=== PATIENT | female | born 1960 | race Native Hawaiian/Other Pacific Islander ===

== ENCOUNTER 2023-04-20 06:56 | Outpatient (CLI) | payer OTHER | END 2023-04-20 23:59 | disposition critical access hospital (66) | LOC: EMS 06:56 | DX: R41.0 Disorientation, unspecified (principal); R29.810 Facial weakness; R53.1 Weakness; R26.2 Difficulty in walking, not elsewhere classified; W18.30XA Fall on same level, unspecified, initial encounter; Y92.003 Bedroom of unspecified non-institutional (private) residence as the place of occurrence of the external cause | CPT/HCPCS: A0425; A0429 ==

== ENCOUNTER 2023-04-20 07:09 | Emergency (ER) | payer OTHER ==
[2023-04-20 07:49] LABS: BASOPHILS % (AUTO) 0.6 %; EOSINOPHILS # (AUTO) 0.1 10^3/uL (0.0-0.7); EOSINOPHILS % (AUTO) 2.1 %; LYMPHOCYTES # (AUTO) 1.4 10^3/uL (1.5-3.5); LYMPHOCYTES % (AUTO) 28.9 %; MEAN CORPUSCULAR HEMOGLOBIN 30.1 pg (27.0-31.0); MEAN CORPUSCULAR HGB CONC 32.6 g/dL (32.0-36.0); MEAN CORPUSCULAR VOLUME 92.5 fL (81.0-99.0); MEAN PLATELET VOLUME 12.1 fL (7.9-10.8); MONOCYTES # (AUTO) 0.3 10^3/uL (0.0-1.0); MONOCYTES % (AUTO) 6.8 %; NEUTROPHILS % (AUTO) 61.4 %; PLT - PLATELET COUNT 96 10^3/uL (130-450); RED BLOOD COUNT 4.65 10^6/uL (4.20-5.40); RED CELL DISTRIBUTION WIDTH 12.5 % (12.0-15.0); WHITE BLOOD COUNT 4.9 x10^3/uL (4.8-10.8)
[2023-04-20 08:09] LABS: ALBUMIN 3.9 g/dL (3.2-5.5); ALBUMIN/GLOBULIN RATIO 1.2 (1.0-2.2); BILIRUBIN,TOTAL 0.7 mg/dL (0.2-1.0); CALCIUM 9.2 mg/dL (8.5-10.3); CREATININE 0.9 mg/dL (0.6-1.3); POTASSIUM 4.1 mmol/L (3.5-4.5); TOTAL PROTEIN 7.1 g/dL (6.4-8.9); TROPONIN I HIGH SENSITIVITY 4.6 ng/L (2.3-14.8)
--- NOTE | 2023-04-20 08:14 | CT Report ---
PROCEDURE: Head W/O Stroke Protocol INDICATIONS: code stroke TECHNIQUE: Noncontrast 4.5 mm thick angled axial sections acquired from the foramen magnum to the vertex, with c oronal reformats. For radiation dose reduction, the following was used: automated exposure control, adjustment of mA and/or kV according to patient size. COMPARISON: None. FINDINGS: Image quality: Excellent. CSF spaces: Basal cisterns are patent. No extra-axial fluid collections. Ventricles are normal in size and shape. Brain: No midline shift. No intracranial masses or hemorrhage. [place]-white matter interface is norm al. There is cerebral volume loss and periventricular white matter chronic small vessel treatment ch anges. There is a hypodensity in the right ernestina. Skull and face: Calvarium and visualized facial bones are intact, without suspicious lesions. Sinuses: Visualized sinuses and mastoids are clear. IMPRESSION: 1. No acute intracranial abnormality. 2. Cerebral volume loss and periventricular matter chronic small vessel ischemic changes. 3. A small low-density in ernestina, compatible with old or late subacute lacunar infarct. Consider MRI fo r follow-up. No significant discrepancy with the preliminary interpretation. This study fulfills neurological imaging criteria for inclusion or exclusion of acute stroke therapie s based on available published neurological imaging guidelines. Reviewed by: Miri Ruiz MD on 04/20/2023 8:12 AM [facility] Approved by: Miri Ruiz MD on 04/20/2023 8:12 AM [facility] Station ID: [id number]
--- NOTE | 2023-04-20 08:32 | ED Physician Documentation ---
History of Present Illness - Stated complaint Stated Complaint: CODE STROKE - Chief complaint Chief Complaint: Neuro - History obtained from History obtained from: Patient, Family, EMS - Additonal information Additional information: The patient comes to the emergency department chief complaint of right facial droop and slurred speech that started this morning at approximately 6:00. The patient's states that they had gotten up together and were getting ready for their day in the bathroom, talking normally, and the patient seem like her normal self. went downstairs to get breakfast and noticed that the patient seemed to be taking longer to come down to the kitchen than she normally does. He went up to check on her sometime between 610 and 620 this morning, and found her on the floor. The patient states she began to feel dizzy and off balance and so she laid down. Initial report stated that she had left-sided weakness, that the patient refutes this. states the patient's right face seemed to be drooping and she was drooling. He felt that she was communicating appropriately, but did have some slurred speech. The patient denies visual changes. Medics report that the patient had began to improve by the time they got there and was noted to have drastic improvement in route. Patient states that she feels "fine" now. feels that she is much quieter than usual and is talking with a very soft voice and not nearly as much as she normally would. The patient denies feeling ill yesterday. She felt like her normal self and did not even have symptoms when she woke up this morning. She states she is otherwise healthy as far she knows and is not on any medication for anything. No other complaints at this time. No chest pain or shortness of breath. No GI symptoms. No fevers or chills. PD PAST MEDICAL HISTORY - Past Medical History Past Medical History: Yes Cardiovascular: None Respiratory: None Endocrine/Autoimmune: None GI: None : None HEENT: Chronic vision loss Psych: None Musculoskeletal: Other Derm: None - Past Surgical History Past Surgical History: Yes General: Colonoscopy Ortho: Other /PEARLER: LEEP (Cervical surgery), Other - Present Medications Home Medications: Ambulatory Orders Medication Instructions Recorded Confirmed Fexofenadine HCl [Bushra Allergy] 180 mg PO DAILY 09/14/15 09/25/15 Fluticasone [Flonase] 1 sprays NATALIA DAILY 09/14/15 09/25/15 - Allergies Allergies/Adverse Reactions: Allergies Allergy/AdvReac Type Severity Reaction Status Date / Time No Known Drug Allergies Allergy Verified 04/20/23 07:31 - Social History Does the pt smoke?: No Smoking Status: Never smoker Does the pt drink ETOH?: No Does the pt have substance abuse?: No - Immunizations Immunizations are current?: No PD ED PE NORMAL - Vitals Vital signs reviewed: Yes - General General: Alert and oriented X 3, No acute distress, Well developed/nourished - HEENT HEENT: Atraumatic, PERRL, EOMI, Moist mucous membranes - Neck Neck: Supple, no meningeal sign - Cardiac Cardiac: RRR, No murmur, Strong equal pulses - Respiratory Respiratory: No respiratory distress, Clear bilaterally - Abdomen Abdomen: Soft, Non tender, Non distended - Derm Derm: Normal color, Warm and dry, No rash - Extremities Extremities: No deformity, No edema, No calf tenderness / cord - Neuro Neuro: Alert and oriented X 3, export specialist 2-12 intact, No motor deficit, No sensory deficit, Normal speech - Psych Psych: Normal mood, Normal affect Results - Vitals Vitals: Oxygen O2 Source Room air - Labs Labs: Laboratory Tests 04/20/23 04/20/23 04/20/23 07:44 07:44 07:44 WBC 4.9 RBC 4.65 Hgb 14.0 Hct 43.0 MCV 92.5 MCH 30.1 MCHC 32.6 RDW 12.5 Plt Count 96 L MPV 12.1 H Neut # (Auto) 3.0 Lymph # (Auto) 1.4 L [place] # (Auto) 0.3 Eos # (Auto) 0.1 Baso # (Auto) 0.0 Absolute Nucleated RBC 0.00 Nucleated RBC % 0.0 Sodium 138 Potassium 4.1 Chloride 104 Carbon Dioxide 29 Anion Gap 5.0 L BUN 12 Creatinine 0.9 Estimated GFR (MDRD) 64 L Glucose 196 H POC Whole Bld Glucose 188 H Calcium 9.2 Total Bilirubin 0.7 AST 50 H ALT 55 Alkaline Phosphatase 67 Troponin I High Sens 4.6 Total Protein 7.1 Albumin 3.9 Globulin 3.2 Albumin/Globulin Ratio 1.2 Lipase 15 - Rads (name of study) CT head noncon Relevant Findings:: Final report received, See rad report (neg) CTA head/neck Relevant Findings:: Final report received, See rad report (No significant stenosis or blockage) MR brain Relevant Findings:: Final report received, See rad report (Mild acute infarct of periventricular white matter and caudate nucleus, R) echo Relevant Findings:: Prelim report reviewed (nad) PD Medical Decision Making - ED course Complexity details: reviewed results, re-evaluated patient, considered differential, d/w patient ED course: The patient's NIH stroke scale score was 0 here. She was worked up with CT scans of the head and neck with angio, labs, and EKG, and treated with IV fluids and aspirin in the emergency department once CTs were read as negative. MRI of the brain was ordered and showed a mild acute infarct involving caudate nucleus and periventricular white matter. The pt was re-evaluated and asymptomatic, feeling much better. Echo was performed and negative. I discussed the case with our on-call hospitalist, Dr. Trevino, who felt that given that all of the work-up was done and the pt was completely resolved, there was no role for inpatient management. She recommended daily aspirin and discharge home with PCP f/u. I discussed the findings and plan with pt and her , and they were very much desiring discharge. We have discussed mitigation of stroke risk factors and the need for follow up with PCP. We have discussed the usual indications for return. Departure - Departure Disposition: 01 Home, Self Care Clinical Impression: TIA (transient ischemic attack) Condition: Stable Instructions: ED Transient Ischemic Attack Comments: Your MRI today did show a small area of mild stroke, which is resolving. This was a most certainly the cause of your symptoms today. Most likely, this is the result of some clogging of the very small blood vessels in your brain, and something like this could happen again. The most important thing is to try to prevent any worsening of the condition of your blood vessels is much as possible. This is achieved by taking an aspirin daily, making sure your blood pressure is well-controlled, a low-cholesterol, largely plant-based diet. Please follow-up with your doctor soon as possible to discuss the best approach to optimizing stroke prevention in your everyday life. Please be sure to greens picker the aspirin today and take your next dose tomorrow. You should plan to take aspirin once a day for the rest of your life. If you have further strokelike symptoms, please return to the emergency department. Forms: PCP List Discharge Date/Time: 04/20/23 15:00
[2023-04-20] MEDS: SODIUM CHLORIDE 0.9% 1,000 ML IV STA (08:35)
[2023-04-20] MEDS: ASPIRIN CHEW 81 MG TABLET PO STA (08:35)
[2023-04-20] MEDS ORDERED: iohexoL-300 100 ML VIAL ONE (08:41)
[2023-04-20] MEDS: iohexoL-300 100 ML VIAL IVP ONE (08:43)
--- NOTE | 2023-04-20 09:04 | CT Report ---
PROCEDURE: Angio Head/Neck INDICATIONS: code stroke TECHNIQUE: After the administration of intravenous contrast, 1 mm thick sections acquired from the aortic arch t hrough the [place]. 3-dimensional woaxjaf-foxvnsjny-xvwukjabaj (MIP) and/or volume renderin g reformats were acquired of the central intracranial vasculature and neck separately. For radiation dose reduction, the following was used: automated exposure control, adjustment of mA and/or kV acco rding to patient size. CONTRAST: Omni 300 80ml COMPARISON: None. FINDINGS: Image quality: Diagnostic. HEAD CT: CSF Spaces: Basal cisterns are patent. No extra-axial fluid collections. Ventricles are normal in size and shape. Brain: The brain is within normal limits for age and scanning technique. Skull and face: Calvarium and visualized facial bones appear intact, without suspicious lesions. Sinuses: Visualized sinuses and mastoids are clear. HEAD CT ANGIOGRAPHY: Anterior circulation: Intracranial internal carotid arteries are normal in size and flow. The flow within the paired anterior cerebral arteries is normal and symmetric. The flow within the middle cer ebral arteries is normal and symmetric. The anterior communicating artery is seen. No aneurysms are seen. Posterior circulation: Visualized portions of the vertebral arteries demonstrate normal caliber, and join to form a normal appearing basilar artery. Flow within the posterior cerebral arteries is norm al and symmetric. No aneurysms are seen. NECK CT ANGIOGRAPHY: Carotid system: The great vessels demonstrate a conventional anatomy as they arise from the aortic a rch. The origins of the common carotid arteries appear patent. The common carotid arteries demonstr ate normal caliber and courses. The bifurcation regions are both widely patent. The internal caroti d arteries demonstrate normal calibers and courses. Posterior circulation: The origins of the vertebral arteries both appear widely patent. The more spring perior extracranial portions of both vertebral arteries also demonstrate normal courses and calibers. They join to form a normal appearing basilar artery. Soft tissues: Visualized neck soft tissues demonstrate no suspicious abnormalities. Bones: No suspicious bony lesions. Visualized cervical spine appears normally aligned. 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 IMPRESSION: No significant intracranial arterial abnormality is seen. No significant abnormality is seen within the arteries of the neck. 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 Findings are concordant with preliminary interpretation provided by [facility]. The estimate of stenosis included in the report of the imaging study was calculated using the NASCET method Reviewed by: Samuel Kelly MD on 04/20/2023 9:03 AM PST Approved by: Samuel Kelly MD on 04/20/2023 9:03 AM PST Station ID: [id number]
--- NOTE | 2023-04-20 12:50 | MRI Report ---
PROCEDURE: Brain WO INDICATIONS: r facial droop, L arm/leg weak, resolving TECHNIQUE: Noncontrast axial T1 spin echo, axial T2 fast spin echo, sagittal and axial FLAIR, coronal T2 fast sp in echo, axial gradient echo, axial diffusion and ADC through the brain. COMPARISON: Correlation is made with the CT imaging performed earlier in the day. FINDINGS: Image quality: Diagnostic, with note made of motion artifact. CSF Spaces: Basal cisterns are patent. No extra-axial fluid collections. Ventricles are normal in size and shape. Brain: Within the periventricular white matter of the right frontal lobe and within a portion of the right head of the caudate nucleus, there is abnormal diffusion-weighted signal seen, as on series 12 images 40 and 41, with associated dark signal on the ADC map. No intracranial masses or hemorrhage. [place]/white matter interface is normal. Brainstem appears norm al. No chronic ischemic insults. Normal intravascular flow voids are present. Age-appropriate brai n parenchymal volume loss and chronic small vessel ischemic change can be seen. Skull and face: Calvarium has normal marrow signal. Orbits appear normal. In this patient with thi s given history, scrutiny is given to the course of the right facial nerve, including within the righ t parotid gland. To the limits of this standard protocol noncontrast study, no masses or abnormal sig nal can be seen within these regions. Sinuses: Sinuses and mastoids are clear. IMPRESSION: Mild acute infarction involving the right periventricular white matter and a portion of the right hea d of the caudate nucleus Reviewed by: Jarek Camilo MD on 04/20/2023 11:48 AM [place] Approved by: Jarek Camilo MD on 04/20/2023 11:48 AM [facility] Station ID: [id number]
[2023-04-20 15:06] VITALS: BP 138/83; O2SAT 99
== END 2023-04-20 15:00 | disposition home or self-care (01) ==
LOC: EDUNIT# → ED 07:09
DX: G45.9 Transient cerebral ischemic attack, unspecified (principal)
CPT/HCPCS: 36415; 70450; 70496; 70498; 70551; 80053; 83690; 84484; 85025; 93005; 93308; 99284; A9270; Q9967